=== PATIENT | female | born 2000 | race Caucasian/White ===

== ENCOUNTER 2023-03-11 02:49 | Emergency (ER) | payer BC, OTHER, SELFPAY ==
--- NOTE | ~2023-03-11 | CT_ITS ---
EXAMINATION: CT abdomen pelvis wo con DATE: 03/11/2023 06:23 INDICATION: Flank pain. Nausea and vomiting. TECHNIQUE: Computed tomography (CT) of the abdomen and pelvis was performed without intravenous contr ast. Automated exposure control and iterative reconstruction technique were employed. Exam dose: 222 .03 mGy-cm total exam DLP. COMPARISON: None. FINDINGS: The lung bases are clear. Normal heart size. No pericardial or pleural effusion. The liver, gallbladder, bile ducts, spleen, pancreas, pancreatic duct, and adrenal glands are unremar kable. There is an approximately 3.2 mm calcification in the right pelvic area. Differential diagnosis inclu lizette calcified phlebolith versus distal right ureteral. Repeat examination with IV contrast material a nd delayed CT views would be helpful to more definitively confirm or exclude distal right ureteral ca lculus. (The ureters are difficult to trace.) No other evidence of urinary tract calculus is detected. Normal caliber of the abdominal aorta. No intraperitoneal or retroperitoneal or pelvic mass lesion or adenopathy or ascites is noted. The uterus and adnexal areas are unremarkable. The urinary bladder is relatively evacuated. Normal appendix. No bowel obstruction or intraperitoneal free air. Included skeletal structures are unremarkable. IMPRESSION: Approximately 3.2 mm right pelvic calcification; diffusion diagnosis includes distal rig ht ureteral calcified calculus versus calcified phlebolith. CT examination with IV contrast material and delayed views would be helpful to definitively confirm or exclude right distal ureteral calculus Reviewed, dictated and finalized at [facility]. Reviewed, dictated and finalized at [facility]. IMPRESSION: Approximately 3.2 mm right pelvic calcification; diffusion diagnos is includes distal right ureteral calcified calculus versus calcified phlebolit h. CT examination with IV contrast material and delayed views would be helpful to definitively confirm or exclude right distal ureteral calculus
[2023-03-11 03:00] VITALS: BP 118/71; PULSE 99; RESP 18; TEMP 36.4; O2SAT 100
[2023-03-11 03:07] LABS: Basophils Absolute Auto 0.1 K/mm3 (0.0-0.1); Basophils Percent Auto 0.4 % (0.2-1.2); Eosinophils Absolute Auto 0.1 K/mm3 (0-0.3); Eosinophils Percent Auto 0.6 % (0-4.4); Hematocrit 39.9 % (37.0-47.0); Hemoglobin 13.5 g/dL (12.0-15.0); Immature Granulocyte Absolute 0.04 K/mm3 (0.00-0.031); Immature Granulocyte Percent A 0.3 % (0-0.5); Lymphocytes Absolute Auto 2.48 K/mm3 (0.9-3.2); Lymphocytes Percent Auto 19.1 % (18.3-44.2); Mean Corpuscular HGB Conc 33.8 g/dl (32-36); Mean Corpuscular Hemoglobin 31.7 pg (26-34); Mean Corpuscular Volume 93.7 fl (80-100); Mean Platelet Volume 10.9 fl (7.4-10.4); Monocytes Absolute Auto 1.2 K/mm3 (0.1-0.6); Monocytes Percent Auto 9.3 % (2.6-8.5); Neutrophils Absolute Auto 9.1 K/mm3 (1.3-6.7); Neutrophils Percent Auto 70.3 % (45.5-73.1); Platelet Count Result 186 k/mm3 (150-375); Red Blood Count 4.26 M/mm3 (4.2-5.4); Red Cell Distribution Width 12.3 % (11.5-14.5)
[2023-03-11 03:49] LABS: Alanine Aminotransferase 22 U/L (6-35); Albumin Level 4.3 g/dL (3.5-5.1); Alkaline Phosphatase 69 U/L (38-126); Anion Gap 8 mmol/L (8-16); Aspartate Amino Transferase 23 U/L (14-36); Bilirubin,Total 0.3 mg/dL (0.2-1.3); Blood Urea Nitrogen 13 mg/dL (7-17); Calcium 8.7 mg/dL (8.4-10.2); Carbon Dioxide 23 mmol/L (22-30); Chloride 105 mmol/L (98-107); Estimated CRCL calculation 116 ml/min; Estimated Glomerular Filt Rate > 60; Glucose 139 mg/dL (65-110); Lipase 56 U/L (23-300); Potassium 3.2 mmol/L (3.4-5.0); Sodium 136 mmol/L (137-145)
[2023-03-11 03:56] VITALS: BP 132/88; PULSE 97; RESP 18; O2SAT 100
[2023-03-11] MEDS: SODIUM CHLORIDE 0.9% IV 1,000 ML 999 ML IV CONT (04:35)
[2023-03-11] MEDS: HYDROmorphone HCL INJ (*CRX) 1 MG/ML SYR 0.5 MG IV PUSH (04:35)
[2023-03-11] MEDS: ONDANSETRON INJ 4 MG/2 ML VIAL IV PUSH ×2 (04:36→08:56)
[2023-03-11 06:15] LABS: Appearance Urine Turbid (Clear); Bacteria Urine None Seen /hpf; Bilirubin Urine Negative (Negative); Blood Urine 3+ (Negative); Color Urine Yellow (Yellow); Glucose Urine UA Trace mg/dL (Negative); Ketones Urine Trace mg/dL (Negative); Leukocyte Esterase Ur Negative LEU/UL (Negative); Nitrate Urine Negative (Negative); Non Pathogenic Casts 0-2; Protein Urine Negative (Negative); RBC Urine 21-50 /hpf (0-2); Specific Grav Ur 1.018 (1.001-1.035); Squamous Epithelial Cell Urine None seen /hpf (Few); Urobilinogen Urine 0.2 mg/dL (<2.0); WBC Urine 0-5 /hpf; pH Urine 7.5 (5.0-9.0)
[2023-03-11 06:16] LABS: Add Urine Microscopic? YES
--- NOTE | 2023-03-11 07:22 | ED.GENADULT ---
HPI - General Adult General Chief complaint: Abdominal Pain <Scott Yan MD - Last Filed: 03/11/23 07:25> Stated complaint: abd pain, vomiting <Scott Yan MD - Last Filed: 03/11/23 07:25> Time Seen by Provider: 03/11/23 04:15 <Scott Yan MD - Last Filed: 03/11/23 07:25> History of Present Illness HPI narrative: Patient 22-year-old female who presents emergency department chief complaint of right flank pain. Patient reports that she has no significant intra-abdominal pathology history patient reports that she had sudden onset of pain in the right flank area reports has had nausea and vomiting patient reports the pain is not improved by anything and reports she is unable to get comfortable in any position. <Scott Yan MD - Last Filed: 03/11/23 07:25> Related Data Allergies/adverse reactions: Allergies Allergy/AdvReac Type Severity Reaction Status Date / Time No Known Allergies Allergy Verified 03/11/23 02:50 <Scott Yan MD - Last Filed: 03/11/23 07:25> Review of Systems Review of Systems: A 10 system review of systems was completed on the patient and is negative except for what is stated in the HPI. Nursing and ancillary documentation was reviewed. <Scott Yan MD - Last Filed: 03/11/23 07:25> Exam Narrative: GENERAL: Well-appearing, well-nourished, and in no acute distress. HEAD: Normocephalic, atraumatic. EYES: PERRLA and EOMI. ENT: Nares clear, no rhinorrhea or epistaxis. Mucous membranes moist. NECK: Supple. CHEST: Clear to auscultation. No respiratory distress. HEART: Regular rate and rhythm. No murmur heard. Normal peripheral pulses. ABDOMEN: Soft, diffuse mild tenderness, nondistended, normal active bowel sounds. EXTREMITIES: Normal range of motion. No edema. SKIN: Warm, dry, no rash. NEURO: No focal deficits. Alert and oriented x3. PSYCH: Normal mood and affect. <Scott Yan MD - Last Filed: 03/11/23 07:25> Course Vital Signs Vital signs: Vital Signs Temperature 97.5 F L 03/11/23 03:00 Pulse Rate 99 03/11/23 03:00 Respiratory Rate 18 03/11/23 03:00 Blood Pressure 118/71 03/11/23 03:00 Pulse Oximetry 100 03/11/23 03:00 Oxygen Delivery Room Air 03/11/23 03:00 Temperature 97.5 F L 03/11/23 03:00 Pulse Rate 72 03/11/23 09:52 Respiratory Rate 16 03/11/23 09:52 Blood Pressure 107/72 03/11/23 09:52 Pulse Oximetry 100 03/11/23 03:56 Oxygen Delivery Room Air 03/11/23 03:56 <Scott Yan MD - Last Filed: 03/11/23 07:25> Vital Signs Temperature 97.5 F L 03/11/23 03:00 Pulse Rate 99 03/11/23 03:00 Respiratory Rate 18 03/11/23 03:00 Blood Pressure 118/71 03/11/23 03:00 Pulse Oximetry 100 03/11/23 03:00 Oxygen Delivery Room Air 03/11/23 03:00 Temperature 97.5 F L 03/11/23 03:00 Pulse Rate 72 03/11/23 09:52 Respiratory Rate 16 03/11/23 09:52 Blood Pressure 107/72 03/11/23 09:52 Pulse Oximetry 100 03/11/23 03:56 Oxygen Delivery Room Air 03/11/23 03:56 <Lena Sexton MD - Last Filed: 03/11/23 15:03> Medical Decision Making MDM Narrative Medical decision making narrative: ED COURSE AND MEDICAL DECISION MAKIN-year-old presenting to the emergency department for acute flank pain, symptoms are concerning for likely renal colic versus pyelonephritis. Signout to me pending CT. CT interpreted by radiology: 3 mm distal stone without hydronephrosis. Patient was still having pain, I did therefore give her dose of Toradol and Zofran. On reevaluation, the patient notes that her symptoms have almost completely resolved, she is more comfortable now, no longer nauseous nor having pain, and agreeable to outpatient follow-up with urology Patient is strongly advised to return to the emergency department for any increasing pain not improving with medications, persistent nause
--- NOTE | 2023-03-11 07:52 | PC.NURSE ---
continue waiting ct scan. pt ambulatory to bathroom without difficulty.
[2023-03-11] MEDS: KETOROLAC 15 MG/ML VIAL (*BKC) IV PUSH (08:57)
[2023-03-11] MEDS: LACTATED RINGERS 1,000 ML 999 ML IV CONT (09:11)
[2023-03-11 09:52] VITALS: BP 107/72; PULSE 72; RESP 16
== END 2023-03-11 09:52 | disposition home or self-care (01) ==
PROVIDERS: Emergency Medicine; Emergency Provider Emergency Medicine
DX: N20.1 Calculus of ureter (principal)
CPT/HCPCS: 36415; 74176; 80053; 81001; 81025; 83690; 85025; 96361; 96374; 96375; 96376; 99284; J1170; J1885; J2405; J7030; J7120